=== PATIENT | female | born 1945 | race Caucasian/White ===

== ENCOUNTER 2017-02-16 20:41 | Inpatient (IN) | payer OTHER ==
[~2017-02-16] VITALS: Ht 157.5 cm; Wt 70.8 kg
[2017-02-17] VITALS (7 sets, daily range): BP systolic 94–140; BP diastolic 39–66
[2017-02-17] MEDS ORDERED: LOVASTATIN20 MG PO (00:39)
[2017-02-17 01:06] LABS: CALCIUM 9.1 mg/dL (8.5-10.1); CARBON DIOXIDE 23.6 mmol/L (21-32); POTASSIUM SERUM 3.9 mmol/L (3.5-5.1)
[2017-02-17 01:11] LABS: ALBUMIN 3.8 g/dL (3.4-5.0); BILIRUBIN TOTAL 0.8 mg/dL (0.20-1.00); TOTAL PROTEIN, SERUM 6.9 g/dL (6.4-8.2)
[2017-02-17 01:24] LABS: BASOPHIL % 0.3 % (0-2); RED CELL DISTRIBUTION WIDTH 13.3 % (11.5-14.5)
[2017-02-17 01:25] LABS: PLATELET COUNT 127 x10^3mcL (130-400)
[2017-02-17 02:33] LABS: MAGNESIUM 2.1 mg/dL (1.8-2.4); PHOSPHOROUS 3.7 mg/dL (2.5-4.9)
[2017-02-17 02:38] LABS: CHOLESTEROL/HDL RATIO 2.1
[2017-02-17 02:42] LABS: T3 TOTAL 1.07 ng/mL
[2017-02-17 02:44] LABS: FREE T4 1.24 ng/dL (0.76-1.46); FREE THYROXINE INDEX 3.2 ug/dL (1.4-4.5); T4(THYROXINE) 9.2 ug/dL (4.7-13.3)
[2017-02-17 19:16] LABS: microscopic required? NO
[2017-02-17 19:47] LABS: UA SPECIFIC GRAVITY 1.025 (1.005-1.035); urine erythrocyte NEGATIVE (NEGATIVE)
[2017-02-17 20:12] LABS: AMPHETAMINE QUAL UR NONE DETECTED (NEG <=1000)
[2017-02-18 05:50] VITALS: BP 150/62
[2017-02-18 06:50] LABS: BASOPHIL % 0.6 % (0-2); RED CELL DISTRIBUTION WIDTH 13.5 % (11.5-14.5)
[2017-02-18 06:55] LABS: PLATELET COUNT 103 x10^3mcL (130-400)
[2017-02-18 07:01] LABS: CALCIUM 8.2 mg/dL (8.5-10.1); CARBON DIOXIDE 23.5 mmol/L (21-32); CHLORIDE SERUM 109 mmol/L (98-107); CREATININE SERUM 0.9 mg/dL (0.6-1.0); GFR1 > 60 mL/min; GLUCOSE SERUM 89 mg/dL (74-106); MAGNESIUM 1.8 mg/dL (1.8-2.4); PHOSPHOROUS 2.6 mg/dL (2.5-4.9); POTASSIUM SERUM 4.2 mmol/L (3.5-5.1); SODIUM SERUM 141 mmol/L (136-145)
[2017-02-18 10:35] VITALS: BP 139/64
[2017-02-18 14:14] VITALS: BP 124/54
[2017-02-18 17:48] VITALS: BP 151/59
[2017-02-18 21:39] VITALS: BP 125/56
[2017-02-19 05:24] VITALS: BP 150/62
[2017-02-19 06:15] LABS: BASOPHIL % 0.6 % (0-2); RED CELL DISTRIBUTION WIDTH 13.4 % (11.5-14.5)
[2017-02-19 06:25] LABS: CARBON DIOXIDE 24.5 mmol/L (21-32); CHLORIDE SERUM 110 mmol/L (98-107); CREATININE SERUM 0.8 mg/dL (0.6-1.0); GFR1 > 60 mL/min; GLUCOSE SERUM 89 mg/dL (74-106); MAGNESIUM 1.6 mg/dL (1.8-2.4); PHOSPHOROUS 2.8 mg/dL (2.5-4.9); POTASSIUM SERUM 4.2 mmol/L (3.5-5.1); SODIUM SERUM 142 mmol/L (136-145)
[2017-02-19 06:42] LABS: PLATELET COUNT 103 x10^3mcL (130-400)
[2017-02-19 09:45] VITALS: BP 149/76
[2017-02-19 15:09] VITALS: BP 151/67
[2017-02-19 18:53] VITALS: BP 141/66
== END 2017-02-19 19:20 | disposition short-term general hospital (02) | DRG 551 ==
LOC: ED 20:41 → DU 02-17 00:33 → MU 02-18 09:56
PROVIDERS: Emergency Medicine; ADMIT Family Medicine
DX: S22.051A Stable burst fracture of T5-T6 vertebra, initial encounter for closed fracture (principal); N17.0 Acute kidney failure with tubular necrosis; S22.038A Other fracture of third thoracic vertebra, initial encounter for closed fracture; S22.048A Other fracture of fourth thoracic vertebra, initial encounter for closed fracture; S01.81XA Laceration without foreign body of other part of head, initial encounter; D64.9 Anemia, unspecified; E78.5 Hyperlipidemia, unspecified; W01.198A Fall on same level from slipping, tripping and stumbling with subsequent striking against other object, initial encounter; Y92.481 Parking lot as the place of occurrence of the external cause; Z68.28 Body mass index [BMI] 28.0-28.9, adult; Z85.3 Personal history of malignant neoplasm of breast
CPT/HCPCS: 72072; 83880; 84439; J1885; J2270; J2405; J3010; J7030; J7040